=== PATIENT | female | born 1960 | race Caucasian/White ===

== ENCOUNTER → 2023-06-20 10:12 | Outpatient (CLI) | payer OTHER | END | disposition home or self-care (01) | LOC: LAB 10:12 | DX: E06.3 Autoimmune thyroiditis (principal); R63.8 Other symptoms and signs concerning food and fluid intake; D64.9 Anemia, unspecified ==

== ENCOUNTER 2023-06-20 11:08 | Outpatient (CLI) | payer OTHER | END 2023-06-20 11:12 | disposition home or self-care (01) | LOC: MAMO-SONO 11:08 | DX: N60.11 Diffuse cystic mastopathy of right breast (principal); N60.12 Diffuse cystic mastopathy of left breast; Z12.31 Encounter for screening mammogram for malignant neoplasm of breast ==

== ENCOUNTER → 2023-07-05 | Outpatient (CLI) | payer OTHER | END | disposition home or self-care (01) | LOC: NUCLEAR 07-02 13:00 | PROVIDERS: ATTEND Obstetrics & Gynecology | DX: M81.0 Age-related osteoporosis without current pathological fracture (principal) ==

== ENCOUNTER 2023-09-29 09:41 | Emergency (ER) | payer OTHER ==
[~2023-09-29] VITALS: Ht 167.6 cm; Wt 70.3 kg
[2023-09-29] MEDS ORDERED: SYNTHROID100 MCG PO (09:47)
== END 2023-09-29 10:24 | disposition home or self-care (01) ==
LOC: ER 09:42
DX: J06.9 Acute upper respiratory infection, unspecified (principal)

== ENCOUNTER → 2023-10-23 08:37 | Outpatient (CLI) | payer OTHER ==
[~2023-10-23 08:37] MED LIST: SYNTHROID100 MCG PO
[2023-10-23 09:16] LABS: URINE APPEARANCE Cloudy; URINE BILIRRUBIN Negative (NEGATIVE); URINE BLOOD Negative; URINE COLOR Yellow; URINE GLUCOSE Negative (NEGATIVE); URINE LEUKOCYTE Negative; URINE NITRATE Negative; URINE PROTEIN Negative (NEGATIVE); URINE UROBILINOGEN 0.2 E.U./dl
[2023-10-23 09:19] LABS: HEMATOCRIT 35.1 % (36.0-45.00); HEMOGLOBIN 11.9 g/dL (12.0-15.00); MEAN CELL VOLUME 93.2 fL (80.00-100.00); MEAN CORPUSCULAR HEMOGLOBIN 31.6 pg (27.00-32.0); MEAN CORPUSCULAR HGB CONC 33.9 g/dl (32.0-36.0); PLATELET COUNT 221 K/uL (150-450); RED BLOOD COUNT 3.77 M/uL (4.00-6.00); RED CELL DISTRIBUTION WIDTH 13.6 % (11.5-14.5)
[2023-10-23 09:20] LABS: URINE BACTERIA 200.3 uL (0.0-1933); URINE EPITHELIAL CELLS 56.8 uL (0.0-38.8); URINE RBC 57.7 uL (0.0-20.8)
[2023-10-23 09:37] LABS: URINE CRYSTALS FEW /HPF
[2023-10-23 09:47] LABS: ALBUMIN 3.6 gm/dL (3.4-5.0); BILIRUBIN TOTAL 0.46 mg/dL (0.3-1.2); CALCIUM 9.2 mg/dL (8.5-10.1); CHOL HDL RATIO 2.3 (0-5.0); CREATININE SERUM 0.72 mg/dL (0.55-1.02); GFR 82.35; GLOBULINA 2.9 G/DL (2.4-3.5); POTASSIUM 4.34 mEq/L (3.5-5.1); TOTAL PROTEIN 6.5 gm/dL (6.4-8.2); TSH 0.701 uIU/mL (0.358-3.74)
== END | disposition home or self-care (01) ==
LOC: LAB 08:37
PROVIDERS: ATTEND General Practice
DX: E03.9 Hypothyroidism, unspecified (principal); I10 Essential (primary) hypertension; G80.1 Spastic diplegic cerebral palsy; R73.01 Impaired fasting glucose

== ENCOUNTER 2024-05-02 08:39 | Outpatient (CLI) | payer OTHER ==
[2024-05-02 10:04] LABS: PH,URINE 6.5 (5.0-8.0); URINE APPEARANCE Clear; URINE BILIRRUBIN Negative (NEGATIVE); URINE BLOOD Negative; URINE COLOR Yellow; URINE GLUCOSE Negative (NEGATIVE); URINE LEUKOCYTE Small; URINE NITRATE Negative; URINE PROTEIN Negative (NEGATIVE); URINE UROBILINOGEN 0.2 E.U./dl
[2024-05-02 10:08] LABS: URINE BACTERIA 71.7 uL (0.0-1933); URINE EPITHELIAL CELLS 9.1 uL (0.0-38.8); URINE RBC 10.2 uL (0.0-20.8); URINE WBC 45.2 uL (0.0-23.2)
[2024-05-02 10:11] LABS: HEMOGLOBIN 12.5 g/dL (12.0-15.00); MEAN CORPUSCULAR HEMOGLOBIN 31.5 pg (27.00-32.0); MEAN CORPUSCULAR HGB CONC 33.8 g/dl (32.0-36.0); PLATELET COUNT 220 K/uL (150-450); RED BLOOD COUNT 3.98 M/uL (4.00-6.00); RED CELL DISTRIBUTION WIDTH 13.4 % (11.5-14.5)
[2024-05-02 10:42] LABS: ALBUMIN 3.8 gm/dL (3.4-5.0); BILIRUBIN TOTAL 0.35 mg/dL (0.3-1.2); CALCIUM 9.1 mg/dL (8.5-10.1); CHOL HDL RATIO 2.8 (0-5.0); CREATININE SERUM 0.8 mg/dL (0.55-1.02); GFR 72.68; GLOBULINA 3.2 G/DL (2.4-3.5); POTASSIUM 4.64 mEq/L (3.5-5.1); TSH 1.55 uIU/mL (0.358-3.74)
== END 2024-05-02 08:40 | disposition home or self-care (01) ==
LOC: LAB 08:39
PROVIDERS: ATTEND General Practice
DX: E07.89 Other specified disorders of thyroid (principal); I10 Essential (primary) hypertension; E78.01 Familial hypercholesterolemia

== ENCOUNTER 2024-05-06 12:55 | Outpatient (CLI) | payer OTHER | END 2024-05-06 13:01 | disposition home or self-care (01) | LOC: SONOGRAMA 12:55 | PROVIDERS: ATTEND General Practice | DX: E04.2 Nontoxic multinodular goiter (principal) ==

== ENCOUNTER 2024-09-07 11:34 | Outpatient (CLI) | payer OTHER | END 2024-09-07 11:46 | disposition home or self-care (01) | LOC: RAD 11:34 | DX: M54.2 Cervicalgia (principal); M54.6 Pain in thoracic spine; M25.561 Pain in right knee; M25.562 Pain in left knee ==

== ENCOUNTER 2024-10-03 08:17 | Outpatient (CLI) | payer OTHER ==
[2024-10-03 09:38] LABS: URINE APPEARANCE Clear; URINE BILIRRUBIN Negative (NEGATIVE); URINE BLOOD Negative; URINE COLOR Yellow; URINE GLUCOSE Negative (NEGATIVE); URINE KETONE Negative (NEGATIVE); URINE LEUKOCYTE Negative; URINE NITRATE Negative; URINE PROTEIN Negative (NEGATIVE); URINE UROBILINOGEN 0.2 E.U./dl
[2024-10-03 09:42] LABS: URINE BACTERIA 69.7 uL (0.0-1933); URINE RBC 8.8 uL (0.0-20.8); URINE WBC 2.5 uL (0.0-23.2)
[2024-10-03 09:45] LABS: HEMATOCRIT 37.7 % (36.0-45.00); HEMOGLOBIN 12.7 g/dL (12.0-15.00); MEAN CELL VOLUME 91.3 fL (80.00-100.00); MEAN CORPUSCULAR HEMOGLOBIN 30.8 pg (27.00-32.0); MEAN CORPUSCULAR HGB CONC 33.7 g/dl (32.0-36.0); PLATELET COUNT 224 K/uL (150-450); RED BLOOD COUNT 4.13 M/uL (4.00-6.00); RED CELL DISTRIBUTION WIDTH 13.1 % (11.5-14.5)
[2024-10-03 09:47] LABS: URINE EPITHELIAL CELLS 0.6 uL (0.0-38.8)
[2024-10-03 10:31] LABS: BILIRUBIN TOTAL 0.66 mg/dL (0.3-1.2); CALCIUM 9.5 mg/dL (8.5-10.1); CHOL HDL RATIO 2.7 (0-5.0); CREATININE SERUM 0.85 mg/dL (0.55-1.02); GFR 67.77; GLOBULINA 3.1 G/DL (2.4-3.5); POTASSIUM 4.56 mEq/L (3.5-5.1); T4 TOTAL 9.91 UG/DL (4.8-13.9); TOTAL PROTEIN 7.1 gm/dL (6.4-8.2); TSH 2.48 uIU/mL (0.358-3.74)
[2024-10-05 10:46] LABS: T3 TOTAL 0.759 ng/ml (0.846-2.02); VITAMIN D3 25 HYDROXY 54.77 ng/ml (30-120)
[2024-10-07 18:04] LABS: VARICELLA ZOSTER VIRUS IGM < 0.91 index (0.00-0.90)
== END 2024-10-03 08:20 | disposition home or self-care (01) ==
LOC: LAB 08:17
PROVIDERS: ATTEND Obstetrics & Gynecology
DX: E78.00 Pure hypercholesterolemia, unspecified (principal); E05.00 Thyrotoxicosis with diffuse goiter without thyrotoxic crisis or storm; N95.0 Postmenopausal bleeding; Z20.828 Contact with and (suspected) exposure to other viral communicable diseases; M81.8 Other osteoporosis without current pathological fracture

== ENCOUNTER 2025-01-14 11:11 | Outpatient (CLI) | payer OTHER | END 2025-01-14 11:13 | disposition home or self-care (01) | LOC: RAD 11:11 | DX: M25.559 Pain in unspecified hip (principal) ==

== ENCOUNTER 2025-04-02 07:30 | Emergency (ER) | payer OTHER ==
[~2025-04-02] VITALS: Ht 157.5 cm; Wt 57.6 kg
[2025-04-02 09:35] LABS: BASO % 0.3 % (0.1-1.2); EOS # 0.06 (0.04-0.54); EOS % 0.4 % (0.7-7.0); HEMATOCRIT 38.3 % (34.1-44.9); HEMOGLOBIN 13.1 g/dL (11.2-15.7); LYMPH # 0.97 (1.18-3.74); LYMPH % 6.8 % (19.3-53.1); MEAN CORPUSCULAR HEMOGLOBIN 31.2 pg (25.6-32.2); MONO # 0.93 (0.24-0.82); MONO % 6.6 % (4.7-12.5); NEUT # 12.15 (1.56-6.13); NEUT % 85.6 % (34.0-71.1); PLATELET COUNT 222 K/uL (163-369); RED CELL DISTRIBUTION WIDTH 12.9 % (11.6-14.4)
[2025-04-02 09:56] LABS: PH,URINE 7.5 (5.0-8.0); URINE APPEARANCE Turbid; URINE BILIRRUBIN Negative (NEGATIVE); URINE BLOOD Large; URINE COLOR Orange; URINE GLUCOSE Negative (NEGATIVE); URINE LEUKOCYTE Large; URINE NITRATE Negative; URINE PROTEIN 30 (NEGATIVE); URINE UROBILINOGEN 0.2 E.U./dl
[2025-04-02 10:01] LABS: URINE BACTERIA 6997.5 uL (0.0-1933); URINE EPITHELIAL CELLS 8.5 uL (0.0-38.8); URINE RBC 7790.5 uL (0.0-20.8); URINE WBC 2965.2 uL (0.0-23.2)
[2025-04-02 10:43] LABS: URINE KETONE 40 (NEGATIVE)
[2025-04-02 10:43] LABS: CALCIUM 9.8 mg/dL (8.5-10.1); CREATININE SERUM 0.83 mg/dL (0.55-1.02); GFR 69.43; POTASSIUM 4.37 mEq/L (3.5-5.1)
[2025-04-02] MEDS ORDERED: levoFLOXacin IN DEXTROSE 5 % 500MG/100ML PIGGYBAG IV ONE ×2 (12:42→12:45)
== END 2025-04-02 14:41 | disposition home or self-care (01) ==
LOC: ER 07:30
PROVIDERS: Emergency Medicine
DX: R31.9 Hematuria, unspecified (principal); E03.8 Other specified hypothyroidism

== ENCOUNTER 2025-04-17 07:37 | Outpatient (CLI) | payer OTHER ==
[2025-04-17 09:11] LABS: URINE APPEARANCE Clear; URINE BILIRRUBIN Negative (NEGATIVE); URINE BLOOD Negative; URINE COLOR Yellow; URINE GLUCOSE Negative (NEGATIVE); URINE KETONE Negative (NEGATIVE); URINE LEUKOCYTE Negative; URINE NITRATE Negative; URINE PROTEIN Negative (NEGATIVE); URINE UROBILINOGEN 0.2 E.U./dl
[2025-04-17 09:12] LABS: BASO % 0.9 % (0.1-1.2); EOS # 0.14 (0.04-0.54); EOS % 2.5 % (0.7-7.0); HEMATOCRIT 35.6 % (34.1-44.9); HEMOGLOBIN 11.9 g/dL (11.2-15.7); LYMPH # 1.18 (1.18-3.74); MEAN CORPUSCULAR HEMOGLOBIN 30.4 pg (25.6-32.2); MONO # 0.44 (0.24-0.82); MONO % 7.8 % (4.7-12.5); NEUT % 67.4 % (34.0-71.1); PLATELET COUNT 242 K/uL (163-369); RED BLOOD COUNT 3.92 M/uL (3.93-5.22); RED CELL DISTRIBUTION WIDTH 12.8 % (11.6-14.4)
[2025-04-17 09:15] LABS: URINE BACTERIA 8.5 uL (0.0-1933); URINE EPITHELIAL CELLS 2.2 uL (0.0-38.8); URINE RBC 8.5 uL (0.0-20.8)
[2025-04-17 10:09] LABS: ALBUMIN 3.8 gm/dL (3.4-5.0); BILIRUBIN TOTAL 0.59 mg/dL (0.3-1.2); CALCIUM 9.5 mg/dL (8.5-10.1); CHOL HDL RATIO 3.1 (0-5.0); CREATININE SERUM 0.87 mg/dL (0.55-1.02); GFR 65.76; GLOBULINA 2.9 G/DL (2.4-3.5); POTASSIUM 4.4 mEq/L (3.5-5.1); TOTAL PROTEIN 6.7 gm/dL (6.4-8.2); TSH 0.886 uIU/mL (0.358-3.74)
== END 2025-04-17 09:24 | disposition home or self-care (01) ==
LOC: LAB 07:37
PROVIDERS: ATTEND Internal Medicine Cardiovascular Disease
DX: I11.9 Hypertensive heart disease without heart failure (principal); N39.0 Urinary tract infection, site not specified; E78.2 Mixed hyperlipidemia; E03.9 Hypothyroidism, unspecified; E55.9 Vitamin D deficiency, unspecified

== ENCOUNTER 2025-10-09 07:29 | Outpatient (CLI) | payer OTHER ==
[2025-10-09 08:17] LABS: URINE APPEARANCE Clear; URINE BILIRRUBIN Negative (NEGATIVE); URINE BLOOD Negative; URINE COLOR Yellow; URINE GLUCOSE Negative (NEGATIVE); URINE KETONE Negative (NEGATIVE); URINE LEUKOCYTE Negative; URINE NITRATE Negative; URINE PROTEIN Negative (NEGATIVE); URINE UROBILINOGEN 0.2 E.U./dl
[2025-10-09 08:20] LABS: URINE BACTERIA 96.0 uL (0.0-1933); URINE EPITHELIAL CELLS 13.0 uL (0.0-38.8); URINE RBC 15.0 uL (0.0-20.8); URINE WBC 3.2 uL (0.0-23.2)
[2025-10-09 08:21] LABS: BASO % 0.9 % (0.1-1.2); EOS # 0.17 (0.04-0.54); EOS % 3.2 % (0.7-7.0); LYMPH # 1.59 (1.18-3.74); LYMPH % 29.6 % (19.3-53.1); MEAN PLATELET VOLUME 12.00 fl (9.4-12.4); MONO # 0.48 (0.24-0.82); MONO % 8.9 % (4.7-12.5); NEUT # 3.07 (1.56-6.13); NEUT % 57.2 % (34.0-71.1); RED CELL DISTRIBUTION WIDTH 12.8 % (11.6-14.4)
[2025-10-09 08:31] LABS: URINE CAST 0.00 uL (0.0-1.40)
[2025-10-09 09:37] LABS: ALT/SGPT 33.0 U/L (12-78); AST/SGOT 32.0 U/L (15-37); BILIRUBIN TOTAL 0.49 mg/dL (0.3-1.2); BUN CREA RATIO 23.0 (7.0-25.0); CHOL HDL RATIO 2.3 (0-5.0); CREATININE SERUM 0.9 mg/dL (0.55-1.02); GFR 63.24; GLOBULINA 3.1 G/DL (2.4-3.5); GLUCOSE FASTING 88.0 mg/dL (65-100); HDL 73.0 mg/dl (40-60); LDL 85.0 mg/dl (0-130); OSMOLALITY SERUM 287.0 MOSM/KG (275-295); VLDL 9.0 (0-39)
[2025-10-09 09:39] LABS: TSH 5.98 uIU/mL (0.358-3.74)
== END 2025-10-09 07:32 | disposition home or self-care (01) ==
LOC: LAB 07:29
DX: E03.9 Hypothyroidism, unspecified (principal); M81.0 Age-related osteoporosis without current pathological fracture; I10 Essential (primary) hypertension; E83.52 Hypercalcemia